=== PATIENT | male | born 2000 | race Hispanic/Latino ===

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

== ENCOUNTER 2022-10-28 12:45 | Emergency (ER) | payer OTHER ==
[2022-10-28] MEDS ORDERED: Ibuprofen 200 MG TAB ONE (13:11)
[2022-10-28] MEDS ORDERED: Ondansetron ODT 4 MG TAB ONE (13:11)
== END 2022-10-28 14:00 | disposition home or self-care (01) ==
LOC: BURERS 12:45
DX: J06.9 Acute upper respiratory infection, unspecified (principal); F17.290 Nicotine dependence, other tobacco product, uncomplicated
CPT/HCPCS: 70450; 87081; 87430; 87804; Q0162